=== PATIENT | female | born 1995 | race American Indian/Alaskan Native ===

== ENCOUNTER 2022-06-13 08:38 | Emergency (ER) | payer MEDICAID ==
[2022-06-13 09:28] VITALS: BP 130/80
[2022-06-13 10:09] LABS: Basophils # (Auto) 0.1 K/mm3 (0.0-0.1); Basophils % (Auto) 1.3 % (0.0-1.8); Eosinophils # (Auto) 0.2 K/mm3 (0.0-0.4); Eosinophils % (Auto) 3.8 % (0.0-4.3); Hematocrit 40.5 % (30.3-42.9); Hemoglobin 13.7 gm/dl (10.1-14.3); Lymphocytes # (Auto) 1.9 K/mm3 (1.2-5.4); Lymphocytes % (Auto) 33.3 % (13.4-35.0); Mean Corpuscular HGB Conc 34 % (30-34); Mean Corpuscular Volume 103 fl (79-97); Monocytes # (Auto) 0.5 K/mm3 (0.0-0.8); Monocytes % (Auto) 8.1 % (0.0-7.3); Platelet Count 249 K/mm3 (140-440); Red Blood Count 3.94 M/mm3 (3.65-5.03); Red Cell Distribution Width 13.9 % (13.2-15.2)
--- NOTE | 2022-06-13 10:52 | Ultrasound Report ---
Pelvic Ultrasound HISTORY: vaginal bleed. TECHNIQUE: Grayscale and color imaging performed. COMPARISON: None FINDINGS: Uterus measures 8.3 x 3.7 x 4.5 cm with endometrial echocomplex measuring 3 mm. Right ovary measures 2.9 x 1.5 x 2.0 cm and the left measures 2.9 x 1.9 x 1.7 cm. Small follicles are present. There is also a more complex-appearing probable involuting functional cyst in the left ovar y measuring 1.4 cm with punctate marginal blood flow noted. IMPRESSION: Left ovarian finding as outlined above. Recommend pelvic ultrasound in 6 weeks to ensure resolution and to exclude the possibility of a mass. Signer Name: Jw Arugello MD Signed: 06/13/2022 10:48 AM Workstation Name: [id number]
[2022-06-13 11:08] LABS: Alanine Aminotransferase 20 units/L (7-56); Albumin 4.7 g/dL (3.9-5); Blood Urea Nitrogen 11 mg/dL (7-17); Calcium 9.5 mg/dL (8.4-10.2); Hemolysis Index 2
[2022-06-13 11:11] LABS: BUN/Creatinine Ratio 22
--- NOTE | 2022-06-13 15:00 | Emergency Department Report ---
ED General Adult HPI - General Chief complaint: Vaginal Bleeding Stated complaint: STOMACH PAIN Source: patient Mode of arrival: Ambulatory Limitations: No Limitations - History of Present Illness Initial comments: 26-year-old female presents to the ED requesting an ultrasound. Patient was seen at [facility] and was told to go to the ER for ultrasound. She states that during her menstrual cycle x 2 days ago, she was having abdominal cramping. She states that abdominal cramping has resolved. Patient denies any nausea or vomiting at present time. She denies any vaginal discharge at present time. She is alert and oriented x3. No acute distress. No ill appearance noted. - Related Data Previous Rx's Medication Instructions Recorded Last Taken Type Naproxen [Naprosyn] 500 mg PO BID 15 Days #30 tablet 06/13/22 Unknown Rx Allergies Allergy/AdvReac Type Severity Reaction Status Date / Time acetaminophen [From Percocet] Allergy Anaphylaxis Verified 06/13/22 09:28 morphine Allergy Anaphylaxis Verified 06/13/22 09:28 oxycodone [From Percocet] Allergy Anaphylaxis Verified 06/13/22 09:28 ED Review of Systems ROS: Stated complaint: STOMACH PAIN Other details as noted in HPI Constitutional: denies: chills, fever Eyes: denies: eye pain, eye discharge, vision change ENT: denies: ear pain, throat pain Respiratory: denies: cough, shortness of breath, wheezing Cardiovascular: denies: chest pain, palpitations Endocrine: no symptoms reported Gastrointestinal: denies: abdominal pain, nausea, diarrhea Genitourinary: denies: urgency, dysuria, discharge Musculoskeletal: denies: back pain, joint swelling, arthralgia Skin: denies: rash, lesions Neurological: denies: headache, weakness, paresthesias Psychiatric: denies: anxiety, depression Hematological/Lymphatic: denies: easy bleeding, easy bruising ED Past Medical Hx - Past Medical History Previous Medical History?: Yes Hx Asthma: Yes Additional medical history: arthritis - Surgical History Past Surgical History?: No - Medications Home Medications: Home Medications Medication Instructions Recorded Confirmed Last Taken Type Naproxen [Naprosyn] 500 mg PO BID 15 Days #30 tablet 06/13/22 Unknown Rx ED Physical Exam - General Limitations: No Limitations General appearance: alert, in no apparent distress - Head Head exam: Present: atraumatic, normocephalic - Eye Eye exam: Present: normal appearance - ENT ENT exam: Present: mucous membranes moist - Neck Neck exam: Present: normal inspection - Respiratory Respiratory exam: Present: normal lung sounds bilaterally. Absent: respiratory distress - Cardiovascular Cardiovascular Exam: Present: regular rate, normal rhythm. Absent: systolic murmur, diastolic murmur, rubs, gallop - GI/Abdominal GI/Abdominal exam: Present: soft, normal bowel sounds - Extremities Exam Extremities exam: Present: normal inspection - Back Exam Back exam: Present: normal inspection - Neurological Exam Neurological exam: Present: alert, oriented X3 - Psychiatric Psychiatric exam: Present: normal affect, normal mood - Skin Skin exam: Present: warm, dry, intact, normal color. Absent: rash ED Course Vital Signs 06/13/22 09:26 Temperature 98.4 F Pulse Rate 76 Respiratory 18 Rate Blood Pressure 130/80 [Left] O2 Sat by Pulse 99 Oximetry ED Medical Decision Making - Lab Data Result diagrams: 06/13/22 09:42 06/13/22 09:42 - Radiology Data [facility] [address] [place] [address] Ultrasound Report Signed Patient: CAR COWAN MR#: [id number] : 1995 Acct:[id number] Age/Sex: 26 / F ADM Date: 06/13/22 Loc: ED Attending Dr: Ordering Physician: CHARISSE CAGLE MD Date of Service: 06/13/22 Procedure(s): US transvaginal Accession Number(s): [id number] cc: CHARISSE CAGLE MD Pelvic Ultrasound HISTORY: vaginal bleed. TECHNIQUE: Grayscale and color imaging performed. COMPARISON: None FINDINGS: Uterus measures 8.3 x 3.7 x 4.5 cm with endometrial echocomplex measuring 3 mm. Right ovary measures 2.9 x 1.5 x 2.0 cm and the left measures 2.9 x 1.9 x 1.7 cm. Small follicles are present. There is also a more complex-appearing probable involuting functional cyst in the left ovary measuring 1.4 cm with punctate marginal blood flow noted. IMPRESSION: Left ovarian finding as outlined above. Recommend pelvic ultrasound in 6 weeks to ensure resolution and to exclude the possibility of a mass. Signer Name: Jw Arguello MD Signed: 06/13/2022 10:48 AM Workstation Name: [id number] Transcribed By: ARMAND Dictated By: Jw Arguello MD Electronically Authenticated By: Jw Arguello MD Signed Date/Time: 06/13/221047 DD/ 44 TD/TT: Print Cancel - Medical Decision Making 26-year-old female presents to the ED requesting an ultrasound. Patient was seen at [facility] and was told to go to the ER for ultrasound. She states that during her menstrual cycle x 2 days ago, she was having abdominal cramping. She states that abdominal cramping has resolved. Patient denies any nausea or vomiting at present time. She denies any vaginal discharge at present time. She is alert and oriented x3. No acute distress. No ill appearance noted. Physical examination is unremarkable. Ultrasound reportRight ovary measures 2.9 x 1.5 x 2.0 cm and the left measures 2.9 x 1.9 x 1.7 cm. Small follicles are present. There is also a more complex-appearing probable involuting functional cyst in the left ovary measuring 1.4 cm with punctate marginal blood flow noted. IMPRESSION: Left ovarian finding as outlined above. Recommend pelvic ultrasound in 6 weeks to ensure resolution and to exclude the possibility of a mass. Rechecked the patient is resting quietly , comfortable and feeling better. I discussed the results of diagnostic study, my clinical impression and the plan for further treatment with the patient. Patient agrees with plan and discharge at this present time. All question addressed. I have given the patient instruction regarding a diagnosis ,expectation ,follow- up and return precaution. I explained to the patient that emergent condition may arise and to return to the ED for new worsen and any new persisting condition. I have explained the importance of following up with the primary care physician or referral physician listed below has instructed. The patient verbalized understanding of discharge instruction. Abnormal Lab Results 06/13/22 06/13/22 06/13/22 09:42 09:42 09:42 WBC 5.7 RBC 3.94 Hgb 13.7 Hct 40.5 MCV 103 H MCH 35 H MCHC 34 RDW 13.9 Plt Count 249 Lymph % (Auto) 33.3 [place] % (Auto) 8.1 H Eos % (Auto) 3.8 Baso % (Auto) 1.3 Lymph # (Auto) 1.9 [place] # (Auto) 0.5 Eos # (Auto) 0.2 Baso # (Auto) 0.1 Seg Neutrophils % 53.5 Seg Neutrophils # 3.0 Sodium 140 Potassium 4.4 Chloride 104.2 Carbon Dioxide 20 L Anion Gap 20 BUN 11 Creatinine 0.5 L Estimated GFR > 60 BUN/Creatinine Ratio 22 Glucose 86 Calcium 9.5 Total Bilirubin < 0.20 AST 34 ALT 20 Alkaline Phosphatase 76 Total Protein 6.9 Albumin 4.7 Albumin/Globulin Ratio 2.1 HCG, Quant < 1 Critical care attestation.: If time is entered above; I have spent that time in minutes in the direct care of this critically ill patient, excluding procedure time. ED Disposition Clinical Impression: Ovarian cyst Qualifiers: Laterality: left Qualified Code(s): N83.202 - Unspecified ovarian cyst, left side Disposition: 01 HOME / SELF CARE / HOMELESS Is pt being admited?: No Does the pt Need Aspirin: No Condition: Stable Instructions: Ovarian Cyst, Arwz-ot-Vkcg Additional Instructions: Take medication as prescribed Return to ED for any worsening symptom follow-up with BUSINESS OFFICE MANAGER in 6 weeks to have a repeat ultrasound Prescriptions: Naproxen [Naprosyn] 500 mg PO BID 15 Days #30 tablet Referrals: [facility] [Provider Group] - 3-5 Days Forms: Work/School Release Form(ED) Time of Disposition: 15:04
== END 2022-06-13 15:30 | disposition home or self-care (01) ==
LOC: ED 08:38
DX: N83.209 Unspecified ovarian cyst, unspecified side (principal); J45.909 Unspecified asthma, uncomplicated
CPT/HCPCS: 36415; 76830; 80053; 84702; 85025; 99283; 99284